=== PATIENT | female | born 1965 | race Caucasian/White ===

== ENCOUNTER 2024-02-27 14:15 | Inpatient (IN) | payer MEDICARE, MEDICAID ==
[~2024-02-27] VITALS: Ht 157.5 cm; Wt 78.0 kg
[2024-02-27 15:06] LABS: GLUCOMETER DEV NAME(LOC) ERT.5; GLUCOSE,POINT OF CARE 85 MG/DL (70-110)
[2024-02-27 15:10] LABS: COVID AG,FIA SOURCE NASAL SWAB
[2024-02-27 15:11] LABS: BASOPHILS % (AUTO) 0.3 % (0.0-2.0); EOSINOPHILS % (AUTO) 2.8 % (1.0-6.0); HEMATOCRIT 35.3 % (36-46); HEMOGLOBIN 12.1 g/dL (12.0-16.0); LYMPHOCYTES # (AUTO) 2.2 K/uL (1.0-4.8); LYMPHOCYTES % (AUTO) 30.8 % (22.0-44.0); MEAN CORPUSCULAR HGB CONC 34.2 G/dL (31.0-37.0); MEAN CORPUSCULAR VOLUME 96 fL (80-100); MONOCYTES % (AUTO) 13.7 % (2.0-9.0); NEUTROPHILS # (AUTO) 3.8 K/uL (1.8-7.7); NEUTROPHILS % (AUTO) 52.4 % (40.0-70.0); PLATELET COUNT (AUTO) 160 K/uL (150-450); RED BLOOD CELL COUNT(AUTO) 3.66 MIL/uL (4.00-5.20); RED CELL DISTRIBUTION WIDTH 13.9 % (11.5-14.5); WHITE BLOOD COUNT (AUTO) 7.2 K/uL (4.5-11.0)
[2024-02-27 15:20] LABS: ANION GAP 7 mmol/L (8-16); CALCIUM, TOTAL 9.8 mg/dL (8.8-10.5); CARBON DIOXIDE 29 mmol/L (22-29); CHLORIDE 104 mmol/L (98-107); CREATININE 0.85 mg/dL (0.60-1.30); GLOMERULAR FILTR. RATE CALC > 60 mL/min (>60); GLUCOSE,RANDOM 96 mg/dL (70-110); POTASSIUM 4.1 mmol/L (3.5-5.1); SODIUM SERUM 140 mmol/L (136-145); UREA NITROGEN, BLOOD 15 mg/dL (7-18)
[2024-02-27 15:25] LABS: ALANINE AMINOTRANSFERASE 24 U/L (12-78); ALCOHOL, BLOOD (SERUM) < 3 mg/dL (0-10); ALKALINE PHOSPHATASE 26 U/L (46-116); ASPARTATE AMINOTRANSFERASE 14 U/L (15-37); BILIRUBIN,TOTAL 0.5 mg/dL (0.1-1.0); TOTAL PROTEIN, SERUM 7.8 g/dL (6.4-8.2)
[2024-02-27 15:27] LABS: SARS-COV2 (COVID) ANTIGEN,FIA Negative (Negative)
[2024-02-27] MEDS: HALOPERIDOL LACTATE 5 MG/ML VIAL IM ONE (15:49)
[2024-02-27] MEDS: DiphenhydrAMINE HCL 50 MG/ML VIAL IM ONE (15:49)
[2024-02-27] MEDS: LORazepam 2 MG/ML VIAL IM ONE (15:50)
[2024-02-27] MEDS ORDERED: CHOL25TA4 PO (18:07)
[2024-02-27] MEDS ORDERED: ROSU10TA72 PO (18:07)
[2024-02-27] MEDS ORDERED: PALI1560 IM (18:07)
[2024-02-27] MEDS ORDERED: AMAN-24 PO (18:07)
[2024-02-27] MEDS ORDERED: ICOS1CAP PO (18:07)
[2024-02-27] MEDS ORDERED: DIVA500T53 PO (18:07)
[2024-02-27] MEDS ORDERED: DOXE50CA70 PO (18:07)
[2024-02-27] MEDS ORDERED: METO25XL PO (18:07)
[2024-02-27] MEDS ORDERED: METF-1211 PO (18:07)
[2024-02-27] MEDS ORDERED: LEVO50 PO (18:07)
[2024-02-28] MEDS: HALOPERIDOL 5 MG TABLET PO PRN (17:22)
[2024-02-28] MEDS: LORazepam 1 MG TABLET PO PRN (17:23)
[2024-02-28] MEDS: DiphenhydrAMINE HCL 50 MG/ML VIAL IM ONE (17:23)
[2024-02-28 22:35] VITALS: BP 146/80; PULSE 99; RESP 18; TEMP 97.3; O2SAT 97
[2024-02-29] MEDS ORDERED: PNEUMOCOCCAL VACCINE POLYVALENT 0.5 ML SYRINGE [PPSV23] IM. ONE (03:30)
[2024-02-29] MEDS ORDERED: MAGNESIUM HYDROXIDE SUSPENSION 30 ML UDCUP PO PRN (05:45)
[2024-02-29] MEDS ORDERED: ONDANSETRON HCL 4 MG TABLET PO PRN (05:45)
[2024-02-29] MEDS ORDERED: DOCUSATE SODIUM 100 MG CAPSULE PO PRN (05:45)
[2024-02-29] MEDS ORDERED: CloNIDine HCL 0.1 MG TABLET PO PRN (05:45)
[2024-02-29] MEDS ORDERED: ALBUTEROL SULFATE HFA 90 MCG/PUFF 8 GM INHALER IH PRN (05:45)
[2024-02-29] MEDS ORDERED: BACITRACIN 28 GM OINTMENT TP PRN (05:45)
[2024-02-29] MEDS ORDERED: OMEPRAZOLE 20 MG CAPSULE PO PRN (05:45)
[2024-02-29] MEDS ORDERED: BENZOCAINE/MENTHOL LOZENGE PO PRN (05:45)
[2024-02-29] MEDS ORDERED: MAG HYDROX/ALUMINUM HYD/SIMETH ES 30 ML SUSPENSION UDCUP PO PRN (05:45)
[2024-02-29] MEDS ORDERED: LOPERAMIDE HCL 2 MG CAPSULE PO PRN (05:45)
[2024-02-29] MEDS ORDERED: IBUPROFEN 600 MG TABLET PO PRN (05:45)
[2024-02-29] MEDS: MetFORMIN HCL 500 MG TABLET PO SCH (08:17)
[2024-02-29] MEDS: LEVOTHYROXINE SODIUM 50 MCG TABLET PO SCH (08:17)
[2024-02-29] MEDS: CHOLECALCIFEROL (VIT D3) 1,000 UNITS [25 MCG] TABLET PO SCH (08:20)
[2024-02-29] MEDS: METOPROLOL SUCCINATE 25 MG ER TABLET PO SCH (08:20)
[2024-02-29 08:31] VITALS: BP 120/70; PULSE 67; RESP 17; TEMP 97.6; O2SAT 95
[2024-02-29 08:53] LABS: HEMOGLOBIN A1C 5.3 % (3.8-5.6)
[2024-02-29 09:11] LABS: CHOL/HDL RATIO 2.5 (3.9-5.7); FREE T4 (FREE THYROXINE) 1.11 ng/dL (0.76-1.46); THYROID STIMULATING HORMONE 2.97 uIU/mL (0.36-3.74)
[2024-02-29 20:58] VITALS: BP 119/71; PULSE 94; RESP 16; TEMP 98.1; O2SAT 96
[2024-02-29] MEDS: ZOLPIDEM TARTRATE 10 MG TABLET PO PRN (21:45)
[2024-02-29] MEDS: ROSUVASTATIN CALCIUM 10 MG TABLET PO SCH (21:55)
[2024-03-01 13:37] VITALS: BP 120/75; PULSE 80; RESP 17; TEMP 98; O2SAT 100
[2024-03-01] MEDS: DIVALPROEX SODIUM 500 MG DR TABLET PO SCH (17:02)
[2024-03-01 17:27] VITALS: RESP 18
[2024-03-01 18:27] VITALS: RESP 16
[2024-03-01 20:12] VITALS: BP 128/83; PULSE 93; RESP 18; TEMP 97.3; O2SAT 96
[2024-03-02 02:08] VITALS: BP 133/73; PULSE 97; RESP 18; TEMP 97.7; O2SAT 96
[2024-03-02 09:46] VITALS: BP 135/74; PULSE 93; RESP 17; TEMP 96.9; O2SAT 97
[2024-03-02 18:53] VITALS: RESP 18; O2SAT 97
[2024-03-02] MEDS: ACETAMINOPHEN 325 MG TABLET PO PRN (18:53)
[2024-03-02 19:53] VITALS: RESP 17; O2SAT 97
[2024-03-02 20:53] VITALS: BP 153/67; PULSE 101; RESP 18; TEMP 97.9; O2SAT 93
[2024-03-03 08:55] VITALS: BP 110/72; PULSE 100; RESP 17; TEMP 98.2; O2SAT 99
[2024-03-03 16:01] VITALS: RESP 18
[2024-03-03 16:57] VITALS: RESP 16
[2024-03-03 20:06] VITALS: BP 144/86; PULSE 100; RESP 16; TEMP 97.6
[2024-03-04 08:02] VITALS: BP 123/77; PULSE 99; RESP 16; TEMP 97.5; O2SAT 97
[2024-03-04] MEDS: PETROLATUM,WHITE 28 GM JELLY TP PRN (08:11)
[2024-03-04 21:27] VITALS: BP 149/72; PULSE 95; RESP 18; TEMP 97.6; O2SAT 96
[2024-03-05 08:12] VITALS: BP 109/63; PULSE 79; RESP 18; TEMP 97.6; O2SAT 96
[2024-03-05 20:10] VITALS: BP 133/83; PULSE 103; RESP 18; TEMP 97.9; O2SAT 96
[2024-03-06 08:05] VITALS: BP 131/71; PULSE 95; RESP 17; TEMP 97; O2SAT 97
[2024-03-06 20:50] VITALS: BP 143/88; PULSE 100; RESP 17; TEMP 98.6; O2SAT 97
[2024-03-07 08:36] VITALS: BP 147/99; PULSE 99; RESP 18; TEMP 96.9; O2SAT 99
== END 2024-03-07 16:30 | disposition home or self-care (01) | DRG 885 ==
LOC: EMS 14:16 → B2S 02-28 19:00
PROVIDERS: ADMIT Psychiatry & Neurology Psychiatry; ATTEND Psychiatry & Neurology Psychiatry
DX: F20.9 Schizophrenia, unspecified (principal); I10 Essential (primary) hypertension; E11.9 Type 2 diabetes mellitus without complications; K21.9 Gastro-esophageal reflux disease without esophagitis; E55.9 Vitamin D deficiency, unspecified; Z20.822 Contact with and (suspected) exposure to COVID-19; E03.9 Hypothyroidism, unspecified; F41.9 Anxiety disorder, unspecified; G47.00 Insomnia, unspecified; K59.00 Constipation, unspecified; R32 Unspecified urinary incontinence; E78.00 Pure hypercholesterolemia, unspecified
CPT/HCPCS: 70450; 80053; 80061; 80164; 82962; 83036; 84439; 84443; 85025; 87081; 99285; G0480; J1200; J1630; J2060